=== PATIENT | female | born 1990 | race Hispanic/Latino ===

== ENCOUNTER 2025-04-12 09:55 | Outpatient (CLI) | payer OTHER | END 2025-04-12 09:56 | disposition home or self-care (01) | LOC: CSHLAB 09:55 | PROVIDERS: ATTEND Obstetrics & Gynecology | DX: O82 Encounter for cesarean delivery without indication (principal) | CPT/HCPCS: 85014; 85018; 85049; 86593; 86780; 86850; 86900; 86901; 87340 ==

== ENCOUNTER 2025-04-13 05:44 | Inpatient (IN) | payer OTHER ==
[2025-04-12 12:01] LABS: Hematocrit 34.5 % (34.9-44.5); Hemoglobin 11.5 g/dL (12.0-15.5); Platelet Count 394 10x3/uL (150-450)
[2025-04-12 12:40] LABS: Hep B Surf Ag Non-Reactive S/CO (NonReactive)
[2025-04-12 14:05] LABS: Syphilis Antibody Index 12.87 S/CO (<1.00 Non-Reactive)
[2025-04-12 15:06] LABS: Syphilis Titer Non-Reactive Titer (Nonreactive)
[2025-04-13 06:16] VITALS: BMI 29.6
[2025-04-13] MEDS ORDERED: Ondansetron PF 4 MG/2 ML Vial IVP PRN ×3 (06:22→09:03)
[2025-04-13] MEDS ORDERED: Oxytocin 30 units/NS 500 ML 500 ML IV SCH (06:22)
[2025-04-13] MEDS ORDERED: hydrALAZINE 20 MG/ML VIAL SLOW IVP PRN ×2 (06:22→10:30)
[2025-04-13] MEDS ORDERED: Bicitra 30 ML UDCUP PO PRN (06:22)
[2025-04-13] MEDS ORDERED: Famotidine/PF 20 mg/2ml Vial SLOW IVP PRN (06:22)
[2025-04-13] MEDS ORDERED: diphenhydrAMINE 50 MG/ML VIAL IVP PRN (09:03)
[2025-04-13] MEDS ORDERED: Meperidine HCl/PF 25 MG (1 mL) VIAL SLOW IVP PRN (09:03)
[2025-04-13] MEDS ORDERED: Communication Order-Pharmacy FS SCH (09:15)
[2025-04-13] MEDS ORDERED: Lanolin Ointment 7 GM TUBE TOP PRN (10:30)
[2025-04-13] MEDS ORDERED: Acetaminophen 325 MG TAB PO PRN (10:30)
[2025-04-13] MEDS ORDERED: diphenhydrAMINE 25 MG CAP PO PRN (10:30)
[2025-04-13] MEDS ORDERED: Bisacodyl 10 MG SUPP PR PRN (10:30)
[2025-04-13] MEDS: PHENYLEPHRINE-NS 100 MCG/ML 10 ML SYRINGE ONE ×2 (11:41)
[2025-04-13] MEDS: Oxytocin 10 UNITS/ML VIAL ONE ×3 (11:41→11:42)
[2025-04-13] MEDS: Ondansetron PF 4 MG/2 ML Vial ONE (11:41)
[2025-04-13] MEDS: diphenhydrAMINE 50 MG/ML VIAL ONE (11:42)
[2025-04-13] MEDS: Ketorolac Tromethamine 30 MG (1 mL) VIAL ONE (11:42)
[2025-04-13] MEDS: Boostrix 0.5 ML (Tdap) VIAL (>/=7 yrs of age) IM ONE (12:01)
[2025-04-13] MEDS: Ketorolac Tromethamine 30 MG (1 mL) VIAL IVP PRN (17:22)
[2025-04-13] MEDS: Simethicone Chewable 80 MG TAB PO PRN (21:28)
[2025-04-13] MEDS: HYDROcodone/Acetaminophen 5/325 mg Tablet PO PRN (21:28)
[2025-04-14] MEDS: HYDROcodone/Acetaminophen 5/325 mg Tablet PO PRN (04:41)
[2025-04-14 05:51] LABS: Hematocrit 29.8 % (34.9-44.5); Hemoglobin 9.8 g/dL (12.0-15.5); Mean Corpuscular Hemoglobin 29.9 pg (27.0-33.0); Mean Corpuscular Volume 90.9 fL (81.6-98.3); Platelet Count 347 10x3/uL (150-450); Red Blood Cell (RBC) Count 3.28 10x6/uL (3.90-5.03); White Blood Cell (WBC) Count 15.39 10x3/uL (3.5-10.5)
[2025-04-14] MEDS: Ibuprofen 800 MG TAB PO SCH (14:02)
[2025-04-15 08:01] VITALS: BP 109/66; TEMP 98.1
== END 2025-04-15 17:14 | disposition home or self-care (01) | DRG 785 ==
LOC: CSHLD 05:44 → CSHPED 10:50
PROVIDERS: ADMIT Obstetrics & Gynecology; ATTEND Obstetrics & Gynecology
PROC: 10D00Z1 Extraction of Products of Conception, Low, Open Approach (ICD-10-PCS; principal; 2025-04-13)
PROC: 0UT70ZZ Resection of Bilateral Fallopian Tubes, Open Approach (ICD-10-PCS; 2025-04-13)
PROC: 3E03329 Introduction of Other Anti-infective into Peripheral Vein, Percutaneous Approach (ICD-10-PCS; 2025-04-13)
DX: O34.211 Maternal care for low transverse scar from previous cesarean delivery (principal); Z37.0 Single live birth; Z3A.39 39 weeks gestation of pregnancy
CPT/HCPCS: 36415; 51702; 85014; 85018; 85027; 85049; 86593; 86780; 86850; 86900; 86901; 87340; 88302; J1200; J1885; J2250; J2274; J2405; J2590; J3010